=== PATIENT | female | born 1980 | race Caucasian/White ===

== ENCOUNTER 2021-03-21 08:36 | Emergency (ER) | payer OTHER ==
[~2021-03-21] VITALS: Ht 160 cm; Wt 104.3 kg
[2021-03-21] MEDS ORDERED: LIDOCAINE 1%/EPI 1:100,000 20 ML VIAL. INJ ONE (09:15)
[2021-03-21 09:26] VITALS: BP 148/77
[2021-03-21 09:43] LABS: BASO % 0 % (0-3); EOS # 0.1 x10^3/uL (0.0-0.7); EOS % 1 % (0-3); HEMATOCRIT 37.7 % (36.0-47.0); HEMOGLOBIN 12.1 g/dL (12.0-15.5); LYMPH # 1.6 x10^3/uL (1.0-4.8); LYMPH % 11 % (24-48); MEAN CORPUSCULAR HEMOGLOBIN 25 pg (25-35); MEAN CORPUSCULAR HGB CONC 32 g/dL (31-37); MEAN CORPUSCULAR VOLUME 76 fL (79-100); MONO # 0.8 x10^3/uL (0.0-1.1); MONO % 6 % (0-9); NEUT % 82 % (31-73); PLATELET COUNT 313 x10^3/uL (140-400); RED BLOOD COUNT 4.93 x10^6/uL (3.50-5.40); RED CELL DISTRIBUTION WIDTH 15.7 % (11.5-14.5); WHITE BLOOD COUNT 14.6 x10^3/uL (4.0-11.0)
[2021-03-21 09:54] LABS: CALCIUM 8.6 mg/dL (8.5-10.1); CREATININE 0.8 mg/dL (0.6-1.0); GFR 80.3
[2021-03-21 09:56] LABS: BILIRUBIN,URINE NEGATIVE (NEG); CLARITY,URINE CLOUDY; COLOR,URINE YELLOW; NITRITE,URINE NEGATIVE (NEG); PH,URINE 5.5 (<5.0-8.0); PROTEIN,URINE NEGATIVE (NEG-TRACE); UROBILINOGEN,URINE 0.2 mg/dL (0.2 mg/dL)
[2021-03-21 10:05] LABS: BACTERIA,URINE MANY /HPF (0-FEW)
[2021-03-21] MEDS ORDERED: CEFD300C PO (10:29)
--- NOTE | 2021-03-21 10:31 | PHYS DOC ---
Past Medical History Additional Past Medical Histor: bartholin cyst abscess Past Surgical History: No Surgical History Smoking Status: Never Smoker Alcohol Use: Rarely General Adult EDM: Chief Complaint: OTHER COMPLAINTS HPI: HPI: Patient is a 40 year old female with history of Bartholin cyst abscess (20 years ago) who presents with concerns for recurrent Bartholin cyst. She noticed swelling on the left side of her vagina yesterday. Has become increasingly red, swollen, and painful. Yesterday also noticed dysuria, urgency, frequency. No back pain or flank pain. No vaginal discharge or bleeding. Recently finished her last period. Had a tubal ligation, so is not concerned about . She has had chills, but no measured fevers. States that she does have an OB through [facility], but has not seen her for many years. Review of Systems: Review of Systems: Constitutional: Denies fever. Reports chills. Eyes: Denies change in visual acuity. [] HENT: Denies nasal congestion or sore throat. [] Respiratory: Denies cough or shortness of breath. [] Cardiovascular: Denies chest pain or edema. [] GI: Denies abdominal pain, nausea, vomiting, bloody stools or diarrhea. [] : Reports dysuria, urgency, frequency, labial cyst. Musculoskeletal: Denies back pain or joint pain. [] Integument: Denies rash. [] Neurologic: Denies headache, focal weakness or sensory changes. [] Endocrine: Denies polyuria or polydipsia. [] Lymphatic: Denies swollen glands. [] Psychiatric: Denies depression or anxiety. [] Heart Score: C/O Chest Pain: No Current Medications: Current Medications Medications (Trade) Dose Ordered Sig/Hilda Start Time Stop Time Status Last Admin Dose Admin Lidocaine/ Epinephrine (LIDOCAINE 1%-EPI 1:100,000 Multi-Dose) 20 ml 1X ONCE 03/21/21 09:15 03/21/21 09:16 DC 03/21/21 09:30 20 ML Allergies: Allergies: Allergies Coded Allergies Type Severity Reaction Last Updated Verified No Known Drug Allergies 03/21/21 No Physical Exam: PE: Constitutional: Appears mildly uncomfortable. Cardiovascular: Mild tachycardia Lungs & Thorax: Normal work of Abdomen: Bowel sounds normal, soft, no tenderness, no masses, no pulsatile masses. [] : Chaperoned exam with nurse in the room. 4 o'clock position of the introitus with a fluctuant spherical mass with overlying erythema and mild labial edema. Tender to the touch. Does not appear to obstruct the urethra. No vaginal drainage or bleeding noted. Skin: Except where noted in exam, warm, dry, no erythema, no rash. [] Extremities: No tenderness, no cyanosis, no clubbing, ROM intact, no edema. [] Neurologic: Alert and oriented X 3, normal motor function, normal sensory function, no focal deficits noted. [] Psychologic: Affect normal, judgement normal, mood normal. [] Current Patient Data: Labs: Laboratory Tests Test 03/21/21 08:56 03/21/21 09:00 POC Urine HCG, Qualitative Hcg negative (Negative) White Blood Count 14.6 x10^3/uL (4.0-11.0) H Red Blood Count 4.93 x10^6/uL (3.50-5.40) Hemoglobin 12.1 g/dL (12.0-15.5) Hematocrit 37.7 % (36.0-47.0) Mean Corpuscular Volume 76 fL (79-100) L Mean Corpuscular Hemoglobin 25 pg (25-35) Mean Corpuscular Hemoglobin Concent 32 g/dL (31-37) Red Cell Distribution Width 15.7 % (11.5-14.5) H Platelet Count 313 x10^3/uL (140-400) Neutrophils (%) (Auto) 82 % (31-73) H Lymphocytes (%) (Auto) 11 % (24-48) L Monocytes (%) (Auto) 6 % (0-9) Eosinophils (%) (Auto) 1 % (0-3) Basophils (%) (Auto) 0 % (0-3) Neutrophils # (Auto) 12.0 x10^3/uL (1.8-7.7) H Lymphocytes # (Auto) 1.6 x10^3/uL (1.0-4.8) Monocytes # (Auto) 0.8 x10^3/uL (0.0-1.1) Eosinophils # (Auto) 0.1 x10^3/uL (0.0-0.7) Basophils # (Auto) 0.0 x10^3/uL (0.0-0.2) Urine Collection Type Unknown Urine Color Yellow Urine Clarity Cloudy Urine pH 5.5 (<5.0-8.0) Urine Specific [place] 1.025 (1.000-1.030) Urine Protein Negative mg/dL (NEG-TRACE) Urine Glucose (UA) Negative mg/dL (NEG) Urine Ketones (Stick) Trace mg/dL (NEG) Urine Blood Large (NEG) Urine Nitrite Negative (NEG) Urine Bilirubin Negative (NEG) Urine Urobilinogen Dipstick 0.2 mg/dL (0.2 mg/dL) Urine Leukocyte Esterase Large (NEG) Urine RBC 6-10 /HPF (0-2) Urine WBC 11-20 /HPF (0-4) Urine Squamous Epithelial Cells Many /LPF Urine Bacteria Many /HPF (0-FEW) Sodium Level 140 mmol/L (136-145) Potassium Level 4.0 mmol/L (3.5-5.1) Chloride Level 103 mmol/L (98-107) Carbon Dioxide Level 29 mmol/L (21-32) Anion Gap 8 (6-14) Blood Urea Nitrogen 12 mg/dL (7-20) Creatinine 0.8 mg/dL (0.6-1.0) Estimated GFR (Cockcroft-Gault) 80.3 Glucose Level 110 mg/dL (70-99) H Calcium Level 8.6 mg/dL (8.5-10.1) Laboratory Tests 03/21/21 09:00 Laboratory Tests 03/21/21 09:00 Vital Signs: Vital Signs Date Time Temp Pulse Resp B/P (MAP) Pulse Ox O2 Delivery O2 Flow Rate FiO2 03/21/21 09:26 100 18 148/77 (100) 99 Room Air 03/21/21 08:50 98.1 98.1 EKG: EKG: [] Radiology/Procedures: Radiology/Procedures: Indication: Bartholin gland abscess Procedure: The patient was positioned appropriately. Local anesthesia was 1% lidocaine with epinephrine. An incision was then made over the apex of the lesion and pressurized purulent drainage was expressed material was expressed. drainage was cultured. A Word catheter was inserted and inflated with 6 cc sterile water. The patient tolerated the procedure well. Complications: none.[] Course & Med Decision Making: Course & Med Decision Making Pertinent Labs and Imaging studies reviewed. (See chart for details) Patient a 40-year-old female presents with dysuria, urgency, frequency, and concern of a Bartholin cyst abscess. Bartholin cyst abscess was confirmed on examination. I&D as above with Word catheter placement. Sent for culture. Mild overlying erythema and edema concerning for early cellulitis. Urine did appear infected as well. Will prescribe cefdinir for treatment of UTI and cellulitis. 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 [email or web address] Disclaimer: Josef Disclaimer: This electronic medical record was generated, in whole or in part, using a voice recognition dictation system. Departure Departure Impression: Primary Impression: Bartholin's gland abscess Additional Impression: UTI (urinary tract infection) Disposition: HOME / SELF CARE / HOMELESS Condition: STABLE Referrals: KARLA GIL MD (PCP) CAROLINE WYNN MD Schedule an appointment if your usual OB cannot see you in a timely fashion. Patient Instructions: Bartholin's Cyst or Abscess, Urinary Tract Infection Additional Instructions: You will need to follow-up with your OB doctor within the next week for removal of your Word catheter. Please keep the catheter in place until you can follow- up. Please take the antibiotic as prescribed for the skin infection as well as your urinary tract infection. If you develop severe fevers/chills, nausea/vomiting, severe back pain, or other new/concerning symptoms please return to the emergency department for evaluation If you cannot follow-up with your established OB, please see the details for Dr. Wynn, our on-call OB. Scripts Cefdinir (CEFDINIR) 300 Mg Capsule 300 MG PO BID for 7 Days, #14 CAP 0 Refills Prov: DIONNA RIGGINS MD 03/21/21 DIONNA RIGGINS MD Mar 21, 2021 10:31
== END 2021-03-21 10:45 | disposition home or self-care (01) ==
LOC: ER 08:36
DX: N75.1 Abscess of Bartholin's gland (principal); N39.0 Urinary tract infection, site not specified
CPT/HCPCS: 36415; 56420; 80048; 81001; 81025; 85025; 87070; 87086; 99284; J3490; 87071; 87075

== ENCOUNTER 2021-03-24 11:58 | Emergency (ER) | payer OTHER ==
[~2021-03-24] VITALS: Ht 160 cm; Wt 90.0 kg
[~2021-03-24 11:58] MED LIST: CEFD300C PO
[2021-03-24 12:17] VITALS: BP 157/81
[2021-03-24] MEDS ORDERED: HYDR-2761 PO (12:57)
[2021-03-24] MEDS ORDERED: HYDROcodone/APAP 5/325MG 1 TAB TABLET PO ONE (13:00)
--- NOTE | 2021-03-24 13:00 | PHYS DOC ---
Past Medical History Additional Past Medical Histor: bartholin cyst abscess Past Surgical History: No Surgical History Smoking Status: Never Smoker Alcohol Use: Rarely General Adult EDM: Chief Complaint: WOUND CHECK HPI: HPI: Patient is a 40 year old female who presents with pain after having a bartholin cyst drained and Word catheter placed. Patient is currently taking anabiotic's she was prescribed when Word catheter was placed. Patient has been taking ibuprofen and Tylenol as scheduled with no relief. Pain is worse with sitting and movement. Patient is scheduled to be seen on Tuesday for a wound check by her OB. Patient feels like there is more swelling and more tender to the touch. Afebrile. Patient has a history of Bartholin cyst and has had I&D 20 years ago. Denies other medical history. Review of Systems: Review of Systems: ROS At least 10 ROS systems have been reviewed and are negative except as documented in the HPI. General: Negative except as outlined in HPI above. Skin: Negative except as outlined in HPI above. HEENT: Negative except as outlined in HPI above. Neck: Negative except as outlined in HPI above. Respiratory: Negative except as outlined in HPI above.. Cardiovascular: Negative except as outlined in HPI above. Abdomen: Negative except as outlined in HPI above. : Negative except as outlined in HPI above. Back/MSK: Negative except as outlined in HPI above. Neuro: Negative except as outlined in HPI above. Psych: Negative except as outlined in HPI above. Heart Score: C/O Chest Pain: No Risk Factors: Risk Factors: DM, Current or recent (<one month) smoker, HTN, HLP, family history of CAD, obesity. Risk Scores: Score 0 - 3: 2.5% MACE over next 6 weeks - Discharge Home Score 4 - 6: 20.3% MACE over next 6 weeks - Admit for Clinical Observation Score 7 - 10: 72.7% MACE over next 6 weeks - Early Invasive Strategies Allergies: Allergies: Allergies Coded Allergies Type Severity Reaction Last Updated Verified No Known Drug Allergies 03/21/21 No Physical Exam: PE: Constitutional: Well developed, well nourished, no acute distress, non-toxic appearance. [] HENT: Normocephalic, atraumatic, bilateral external ears normal, oropharynx moist, no oral exudates, nose normal. [] Eyes: PERRLA, EOMI, conjunctiva normal, no discharge. [] Neck: Normal range of motion, no tenderness, supple, no stridor. [] Cardiovascular:Heart rate regular rhythm, no murmur [] Lungs & Thorax: Bilateral breath sounds clear to auscultation [] Abdomen/vaginal: Bowel sounds normal, soft, no tenderness, no masses, no pulsatile masses. VaginalWord catheter in place. Mild labial edema, tender to the touch. No obstruction of urethra. No vaginal discharge or bleeding noted. Skin: Warm, dry, no erythema, no rash. [] Back: No tenderness, no CVA tenderness. [] Extremities: No tenderness, no cyanosis, no clubbing, ROM intact, no edema. [] Neurologic: Alert and oriented X 3, normal motor function, normal sensory function, no focal deficits noted. [] Psychologic: Affect normal, judgement normal, mood normal. [] Current Patient Data: Vital Signs: Vital Signs Date Time Temp Pulse Resp B/P (MAP) Pulse Ox O2 Delivery O2 Flow Rate FiO2 03/24/21 12:17 98.5 127 16 157/81 (106) 96 98.5 EKG: EKG: [] Radiology/Procedures: Radiology/Procedures: [] Course & Med Decision Making: Course & Med Decision Making Pertinent Labs and Imaging studies reviewed. (See chart for details) [] 40-year-old female presents for pain control after having a Bartholin cyst drained. Patient reports increase in tenderness to the area and swelling. Patient is currently taking antibiotics that were prescribed for UTI and abscess. Treated pain in the emergency room. Advised patient to follow-up with OB who she states she has an established relationship with. Patient also has on-call OB contact information for reference. Patient is being sent home with hydrocodone for pain control. Advised patient to still take ibuprofen for breakthrough pain. Dragon Disclaimer: Dragon Disclaimer: This electronic medical record was generated, in whole or in part, using a voice recognition dictation system. Departure Departure Impression: Primary Impression: Bartholin cyst Disposition: HOME / SELF CARE / HOMELESS Condition: STABLE Referrals: KARLA GIL MD (PCP) Patient Instructions: Bartholin's Cyst or Abscess Additional Instructions: You were seen in the emergency room for pain control after having a Bartholin cyst drained. Continue taking your antibiotics as directed. I am sending you home with a prescription for pain medication. You can also take ibuprofen for breakthrough pain. Please call your OB today to make a follow-up appointment. Return to the emergency room with worsening symptoms or concerns such as uncontrolled nausea and vomiting, fevers, worsening symptoms or concerns. EMERGENCY DEPARTMENT GENERAL DISCHARGE INSTRUCTIONS Thank you for coming to [facility] Emergency Department (ED) today and trusting us with you care. We trust that you had a positive experience in our Emergency Department. If you wish to speak to the department management, you may call the Director at [phone]. YOUR FOLLOW UP INSTRUCTIONS ARE FOLLOWS: 1. Do you have a private Doctor? If you do not have a private doctor, please ask for a resource list of physicians or clinics that may be able to assist you with follow up care. 2. The Emergency Physicain has interpreted your x-rays. The X-Ray specialist will also review them. If there is a change in the findings, you will be notified in 48 hours when at all possible. 3. A lab test or culture has been done, your results will be reviewed and you will be notified if you need a change in treatment. ADDITIONAL INSTRUCTIONS AND INFORMATION: 1. Your care today has been supervised by a physician who is specially trained in emergency care. Many problems require more than one evaluation for a complete diagnosis and treatment. We recommend that you schedule your follow up appointment as recomme nded to ensure complete treatment of you illness or injury. If you are unable to obtain follow up care and continue to have a problem, or if your condition worsens, we recommend that you return to the ED. 2. We are not able to safely determine your condition over the phone nor are we able to give sound medical advice over the phone. For these safety reasons, if you call for medical advice we will ask you to come to the ED for further evaluation. 3. If you have any questions regarding these discharge instructions please call the ED at [phone]. SAFETY INFORMATION: In the interest of safety, wellness, and injury prevention; we encourage you to wear your sealbelt, if you smoke; quite smoking, and we encourage family to use a protective helmet for bicycling and other sporting events that present an increased risk for head injury. IF YOUR SYMPTOMS WORSEN OR NEW SYMPTOMS DEVELOP, OR YOU HAVE CONCERNS ABOUT YOUR CONDITION; OR IF YOUR CONDITION WORSENS WHILE YOU ARE WAITING FOR YOUR FOLLOW UP APPOINTMENT; EITHER CONTACT YOUR PRIMARY CARE DOCTOR, THE PHYSICIAN WHOSE NAME AND NUMBER YOU WERE GIVEN, OR RETURN TO THE ED IMMEDIATELY. Scripts Hydrocodone Bit/Acetaminophen (HYDROCODONE-APAP 5-325 ) 1 Tab Tablet 1 TAB PO PRN Q6HRS PRN for PAIN for 3 Days, #10 TAB 0 Refills Prov: NIURKA SILVEIRA APRN 03/24/21 NIURKA SILVEIRA APRN Mar 24, 2021 12:59
== END 2021-03-24 13:21 | disposition home or self-care (01) ==
LOC: ER 11:58
DX: N75.0 Cyst of Bartholin's gland (principal)
CPT/HCPCS: 99283